=== PATIENT | male | born 1955 | race Caucasian/White ===

== ENCOUNTER 2021-11-08 07:55 | Emergency (ER) | payer BC, OTHER ==
[2021-11-08 08:00] VITALS: BP 155/80; PULSE 52; TEMP 97.6; BMI 26.9
[2021-11-08] MEDS ORDERED: NAPROXEN 500 MG TABLET PO ONE (08:33)
[2021-11-08] MEDS ORDERED: NAPROXEN 500 MG TABLET ONE (08:38)
== END 2021-11-08 12:26 | disposition home or self-care (01) ==
LOC: FER 07:55
DX: S52.022A Displaced fracture of olecranon process without intraarticular extension of left ulna, initial encounter for closed fracture (principal); W00.0XXA Fall on same level due to ice and snow, initial encounter
CPT/HCPCS: 73070-TC-LT-FY; 73090-TC-LT-FY; 99284-25

== ENCOUNTER 2021-11-13 04:34 | Day surgery (SDC) | payer OTHER ==
[2021-11-09 08:32] VITALS: BMI 26.9
[2021-11-13] MEDS ORDERED: ROPIVACAINE HCL 0.5% 30ML VIAL ONE (07:41)
[2021-11-13] MEDS ORDERED: MIDAZOLAM HCL 2 MG/2 ML SINGLE DOSE VIAL ONE ×3 (07:42→09:02)
[2021-11-13] MEDS ORDERED: PROPOFOL 20 ML ONE ×2 (09:02)
[2021-11-13] MEDS ORDERED: oxyCODONE HCL 5 MG TABLET PO PRN ×2 (09:57)
[2021-11-13] MEDS ORDERED: ONDANSETRON 4 MG/2 ML VIAL IVPUSH PRN (09:57)
[2021-11-13] MEDS ORDERED: ceFAZolin SODIUM 1 GM VIAL ONE (09:59)
[2021-11-13] MEDS ORDERED: LACTATED RINGERS SOLUTION 1,000 ML IV SCH (10:00)
[2021-11-13] MEDS ORDERED: ceFAZolin SODIUM 1 GM VIAL IVPB ONE (10:00)
[2021-11-13 13:30] VITALS: BP 128/68; PULSE 71; TEMP 97.6
== END 2021-11-13 13:35 | disposition home or self-care (01) ==
LOC: JASU-SURG 04:34
PROVIDERS: ATTEND Orthopaedic Surgery
PROC: 0MU407Z Supplement Left Elbow Bursa and Ligament with Autologous Tissue Substitute, Open Approach (ICD-10-PCS; 2021-11-13)
PROC: 0PSL04Z Reposition Left Ulna with Internal Fixation Device, Open Approach (ICD-10-PCS; principal; 2021-11-13 09:00)
DX: S52.022A Displaced fracture of olecranon process without intraarticular extension of left ulna, initial encounter for closed fracture (principal); X58.XXXA Exposure to other specified factors, initial encounter; Y93.9 Activity, unspecified; Y92.9 Unspecified place or not applicable; Y99.9 Unspecified external cause status; S53.442A Ulnar collateral ligament sprain of left elbow, initial encounter
CPT/HCPCS: 24685; C1713; 76000-TC-FY